=== PATIENT | male | born 1985 | race Hispanic/Latino ===

== ENCOUNTER 2017-05-25 14:46 | Emergency (ER) | payer SELFPAY ==
[~2017-05-25] VITALS: Ht 172.7 cm; Wt 80.0 kg
[2017-05-25] MEDS ORDERED: VALTREX1 GM PO (15:23)
[2017-05-25] MEDS ORDERED: DOXYCYCL HYC100 MG PO (15:23)
[2017-05-25] MEDS ORDERED: PYRIDIUM200 MG PO (15:23)
[2017-05-25] MEDS ORDERED: SB CLOTRIMAZ1 % EX (15:28)
[2017-05-25 15:52] LABS: URINE BILIRUBIN - DIPSTICK NEGATIVE (NEGATIVE); URINE BLOOD DIPSTICK NEGATIVE (NEGATIVE); URINE CLARITY CLOUDY; URINE COLOR YELLOW; URINE GLUCOSE - DIPSTICK NEGATIVE (NEGATIVE); URINE KETONE NEGATIVE (NEGATIVE); URINE LEUK ESTERASE NEGATIVE (NEGATIVE); URINE NITRITE - DIPSTICK NEGATIVE (Negative); URINE PROTEIN - DIPSTICK NEGATIVE (NEG-TRACE); URINE SPECIFIC GRAVITY 1.025; URINE UROBILINOGEN - DIPSTICK 0.2 E.U./dL (0.2)
[2017-05-25 16:05] VITALS: BP 141/73
== END 2017-05-25 16:05 | disposition home or self-care (01) | DRG 728 ==
LOC: ED 14:46
PROVIDERS: Emergency Medicine
DX: A60.01 Herpesviral infection of penis (principal); B35.6 Tinea cruris

== ENCOUNTER 2017-06-03 15:51 | Emergency (ER) | payer SELFPAY ==
[~2017-06-03] VITALS: Ht 172.7 cm; Wt 80.0 kg
[~2017-06-03 15:51] MED LIST: DOXYCYCL HYC100 MG PO; PYRIDIUM200 MG PO; SB CLOTRIMAZ1 % EX; VALTREX1 GM PO
[2017-06-03 16:48] LABS: HEMATOCRIT 37.6 % (39.0-50.0); HEMOGLOBIN 12.9 g/dl (14.0-18.0); MEAN CELL VOLUME 89.5 fL CALC (80.0-100.0); MEAN CORPUSCULAR HGB 30.7 pG CALC (26.0-32.0); MEAN CORPUSCULAR HGB CONC 34.3 g/L CALC (32.0-36.0); RED BLOOD COUNT 4.2 mill/uL (4.70-6.10); RED CELL DISTRI WIDTH 12.7 % (11.5-15.5)
[2017-06-03 16:50] LABS: URINE BILIRUBIN - DIPSTICK NEGATIVE (NEGATIVE); URINE BLOOD DIPSTICK NEGATIVE (NEGATIVE); URINE CLARITY CLEAR; URINE COLOR YELLOW; URINE GLUCOSE - DIPSTICK NEGATIVE (NEGATIVE); URINE KETONE NEGATIVE (NEGATIVE); URINE LEUK ESTERASE NEGATIVE (Negative); URINE NITRITE - DIPSTICK NEGATIVE (Negative); URINE PROTEIN - DIPSTICK NEGATIVE (NEG-TRACE); URINE SPECIFIC GRAVITY >=1.030; URINE UROBILINOGEN - DIPSTICK 0.2 E.U./dL (0.2)
[2017-06-03 16:58] LABS: ALBUMIN 4.9 g/dL (3.2-5.0); ALKALINE PHOSPHATASE 68 u/l (38-126); ANION GAP 17 (6-22 (CALC)); BILIRUBIN, TOTAL 0.5 mg/dL (0.0-1.4); BUN 21 mg/dL (9-20); BUN/CREATININE RATIO 28 (12-20 (CALC)); CALCIUM 9.9 mg/dL (8.4-10.2); CARBON DIOXIDE 28 mmol/l (22-30); CHLORIDE 102 mmol/l (95-108); CREATININE 0.8 mg/dL (0.7-1.3); GFR > 60 ML/MIN (>=60 (CALC)); GFR FOR AFR.AMER. > 60 ML/MIN (>=60 (CALC)); GLUCOSE 95 mg/dL (75-110); POTASSIUM 4.1 mmol/l (3.5-5.1); SGOT/AST 29 u/l (17-59); SGPT/ALT 38 u/l (21-72); SODIUM 143 mmol/l (137-146); TOTAL PROTEIN 8.6 g/dL (6.3-8.2)
[2017-06-03 17:39] VITALS: BP 108/63
== END 2017-06-03 18:01 | disposition home or self-care (01) | DRG 816 ==
LOC: ED 15:51
PROVIDERS: Family Medicine
DX: R59.1 Generalized enlarged lymph nodes (principal); M54.5 Low back pain; R50.9 Fever, unspecified; M79.605 Pain in left leg
CPT/HCPCS: J0561

== ENCOUNTER 2018-05-01 10:53 | Emergency (ER) | payer SELFPAY ==
[~2018-05-01] VITALS: Ht 172.7 cm; Wt 81.8 kg
[2018-05-01 12:03] LABS: URINE BILIRUBIN - DIPSTICK NEGATIVE (NEGATIVE); URINE BLOOD DIPSTICK NEGATIVE (NEGATIVE); URINE COLOR YELLOW; URINE GLUCOSE - DIPSTICK NEGATIVE (NEGATIVE); URINE KETONE NEGATIVE (NEGATIVE); URINE NITRITE - DIPSTICK NEGATIVE (Negative); URINE PH 6.5 (4.5-8.0); URINE PROTEIN - DIPSTICK NEGATIVE (NEG-TRACE); URINE SPECIFIC GRAVITY 1.025; URINE UROBILINOGEN - DIPSTICK 0.2 E.U./dL (0.2)
[2018-05-01 12:07] LABS: URINE CLARITY HAZY; URINE LEUK ESTERASE SMALL (NEGATIVE)
[2018-05-01 12:13] LABS: URINE WBC 50-100 WBC/hpf (0-5)
[2018-05-01] MEDS ORDERED: BACTRIM DS1 TAB PO (12:24)
[2018-05-01] MEDS ORDERED: PYRIDIUM200 MG PO (12:24)
[2018-05-01] MEDS ORDERED: ZITHROMAX250 MG PO (12:24)
[2018-05-01 12:45] VITALS: BP 118/73
== END 2018-05-01 12:45 | disposition home or self-care (01) | DRG 690 ==
LOC: ED 10:53
PROVIDERS: Emergency Medicine
DX: A54.01 Gonococcal cystitis and urethritis, unspecified (principal)

== ENCOUNTER 2021-09-05 11:42 | Emergency (ER) | payer SELFPAY ==
[~2021-09-05] VITALS: Ht 172.7 cm; Wt 80.0 kg
[~2021-09-05 11:42] MED LIST changes: +BACTRIM DS1 TAB PO; +ZITHROMAX250 MG PO
[2021-09-05] MEDS ORDERED: IBUPROFEN600 MG PO (12:55)
[2021-09-05 13:31] VITALS: BP 123/66
== END 2021-09-05 13:37 | disposition home or self-care (01) | DRG 556 ==
LOC: ED 11:42
DX: M25.511 Pain in right shoulder (principal); M79.641 Pain in right hand; W11.XXXA Fall on and from ladder, initial encounter; Y92.008 Other place in unspecified non-institutional (private) residence as the place of occurrence of the external cause